=== PATIENT | female | born 1965 | race Two or more races ===

== ENCOUNTER 2020-07-05 05:50 | Day surgery (SDC) | payer OTHER ==
[~2020-07-05 05:50] MED LIST: COZAAR100 MG PO; CRESTOR5 MG PO; FORTAMET1000 MG PO; STEGLATRO5 MG PO; TIROSINT25 MCG PO; TOPROL XL25 M1 PO
[2020-07-05] MEDS ORDERED: MORGIDOX100 MG PO (08:24)
[2020-07-05] MEDS ORDERED: NAPR500T14 PO (08:24)
== END 2020-07-05 12:00 | disposition home or self-care (01) ==
LOC: CIR.AMB 05:50
PROVIDERS: ATTEND Obstetrics & Gynecology
DX: D25.0 Submucous leiomyoma of uterus (principal); N84.0 Polyp of corpus uteri; Z20.828 Contact with and (suspected) exposure to other viral communicable diseases